=== PATIENT | male | born 1960 | race Caucasian/White ===

== ENCOUNTER 2016-06-12 20:01 | Emergency (ER) | payer BC ==
[~2016-06-12] VITALS: Ht 180.3 cm; Wt 70.5 kg
[2016-06-12 20:07] VITALS: BP 119/73; TEMP 98.4
[2016-06-12] MEDS ORDERED: CANA100T PO (20:14)
[2016-06-12] MEDS ORDERED: ROXICODONE 55 MG/TAB PO (20:15)
[2016-06-12] MEDS ORDERED: AMOXICILLIN/CLA1 TA1 PO (21:39)
[2016-06-12 21:42] VITALS: PULSE 88
== END 2016-06-12 21:48 | disposition home or self-care (01) ==
LOC: COL.ER 20:01
DX: S01.81XA Laceration without foreign body of other part of head, initial encounter (principal); S09.90XA Unspecified injury of head, initial encounter; W01.198A Fall on same level from slipping, tripping and stumbling with subsequent striking against other object, initial encounter; Y92.008 Other place in unspecified non-institutional (private) residence as the place of occurrence of the external cause; E11.9 Type 2 diabetes mellitus without complications

== ENCOUNTER → 2016-09-11 | Outpatient (CLI) | payer BC ==
[~2016-09-11] MED LIST: AMOXICILLIN/CLA1 TA1 PO; CANA100T PO; ROXICODONE 55 MG/TAB PO
== END ==
LOC: COL.RAD 14:12
DX: G44.329 Chronic post-traumatic headache, not intractable (principal)

== ENCOUNTER → 2016-12-02 | Outpatient (CLI) | payer BC | LOC: COL.RAD 11-26 11:00 | DX: M48.02 Spinal stenosis, cervical region (principal); Z98.1 Arthrodesis status ==

== ENCOUNTER → 2016-12-18 | Outpatient (CLI) | payer BC | LOC: COL.RAD 07:16 | DX: M48.02 Spinal stenosis, cervical region (principal); M47.12 Other spondylosis with myelopathy, cervical region; M50.11 Cervical disc disorder with radiculopathy, high cervical region; M46.82 Other specified inflammatory spondylopathies, cervical region; Z98.890 Other specified postprocedural states | CPT/HCPCS: A9585 ==

== ENCOUNTER → 2017-05-31 | Outpatient (CLI) | payer BC ==
[~2017-05-31] VITALS: Ht 180.3 cm; Wt 72.6 kg
[~2017-05-31] MED LIST changes: +CREON 120000 U-1 ECC PO; +JANUMXR500-50 PO; +OXYCONTIN30 MG PO
[2017-05-31 09:18] VITALS: BP 125/74; PULSE 64
[2017-05-31 10:30] VITALS: BP 147/84; PULSE 61
== END ==
LOC: COL.RAD 08:45
DX: M54.12 Radiculopathy, cervical region (principal); M54.2 Cervicalgia
CPT/HCPCS: J1100

== ENCOUNTER → 2019-09-15 | Outpatient (CLI) | payer BC ==
[~2019-09-15] MED LIST changes: +ARYMO ER30 MG PO; +CIPRO 500MG TA500 MG PO; +FLAGYL500 MG PO; +JANUMET 500 MG-1 TA1 PO; +MS CONTIN 330 MG/TAB PO
[2019-09-15 14:36] LABS: BASO % 0.2 % (0.0-2.0); EOS % 0.1 % (0-4.0); GRAN # 11.9 (1.4-6.5); GRAN % 83.3 % (42.2-75.2); HEMATOCRIT 51.9 % (42.0-52.0); HEMOGLOBIN 17.6 g/dl (13.5-18.0); LYMPH # 1.1 (1.2-3.4); LYMPH % 7.9 % (20.0-51.0); MEAN CELL VOLUME 94 fl (80.0-100.0); MEAN CORPUSCULAR HEMOGLOBIN 32 pg (27.0-31.0); MEAN CORPUSCULAR HGB CONC 34 g/dl (33.0-37.0); MEAN PLATELET VOLUME 10.6 fl (7.4-10.4); MONO # 1.2 (0.1-0.6); MONO % 8.2 % (1.7-9.3); PLATELET COUNT 195 K/mm3 (130-400); REDCELL DISTRIBUTION WIDTH-CV 12.7 % (11.5-14.5)
[2019-09-15 14:42] LABS: ALBUMIN 4.7 gm/dL (3.5-5.0); BILIRUBIN,TOTAL 1.4 mg/dL (0.0-1.0); CALCIUM 9.7 mg/dL (8.4-10.2); CREATININE, serum 0.7 (0.66-1.25); POTASSIUM 4.6 mmol/L (3.4-5.0); TOTAL PROTEIN 8.3 gm/dL (6.4-8.2)
== END ==
LOC: COL.LAB 13:55
PROVIDERS: Family Medicine
DX: K85.90 Acute pancreatitis without necrosis or infection, unspecified (principal)

== ENCOUNTER 2019-09-16 15:03 | Inpatient (IN) | payer BC ==
[2019-09-16] VITALS (120 sets, daily range): BP systolic 132; BP diastolic 86; PULSE 94; TEMP 99; O2SAT 92–100
[~2019-09-16] VITALS: Ht 180.3 cm; Wt 75.8 kg
[~2019-09-16 15:03] MED LIST changes: -ARYMO ER30 MG PO; -CIPRO 500MG TA500 MG PO; -FLAGYL500 MG PO; -JANUMET 500 MG-1 TA1 PO; -MS CONTIN 330 MG/TAB PO
[2019-09-16 15:26] LABS: BASO # 0.1 (0.0-0.2); BASO % 0.3 % (0.0-2.0); EOS % 0.1 % (0-4.0); GRAN # 14.4 (1.4-6.5); GRAN % 85.8 % (42.2-75.2); HEMATOCRIT 48.2 % (42.0-52.0); HEMOGLOBIN 16.5 g/dl (13.5-18.0); LYMPH # 0.9 (1.2-3.4); LYMPH % 5.5 % (20.0-51.0); MEAN CELL VOLUME 94 fl (80.0-100.0); MEAN CORPUSCULAR HEMOGLOBIN 32 pg (27.0-31.0); MEAN CORPUSCULAR HGB CONC 34 g/dl (33.0-37.0); MEAN PLATELET VOLUME 10.7 fl (7.4-10.4); MONO # 1.3 (0.1-0.6); MONO % 7.4 % (1.7-9.3); PLATELET COUNT 188 K/mm3 (130-400); RED BLOOD COUNT 5.13 M/mm3 (4.20-5.60); REDCELL DISTRIBUTION WIDTH-CV 12.6 % (11.5-14.5)
[2019-09-16] MEDS ORDERED: ARYMO ER30 MG PO (15:28)
[2019-09-16 15:40] LABS: ALANINE AMINOTRANSFERASE 14 U/L (4-49); ALBUMIN 4.4 gm/dL (3.5-5.0); ALKALINE PHOSPHATASE 113 U/L (50-136); ANION GAP 12 mmol/L (7-16); AST,SGOT 18 U/L (15-37); BILIRUBIN,TOTAL 1.3 mg/dL (0.0-1.0); BLOOD UREA NITROGEN 14 mg/dL (9-20); CARBON DIOXIDE 25 mmol/L (22-30); CHLORIDE 96 mmol/L (98-107); CREATININE, serum 0.62 (0.66-1.25); GLUCOSE 325 mg/dL (74-106); LIPASE 52 U/L (23-300); POTASSIUM 4.1 mmol/L (3.4-5.0); SODIUM 133 mmol/L (137-145); TOTAL PROTEIN 8.1 gm/dL (6.4-8.2)
[2019-09-16 15:50] LABS: TROPONIN-I < 0.012 ng/mL (0.000-0.035)
[2019-09-16 17:44] LABS: COLLECTION METHOD CLEAN CATCH
[2019-09-16 17:50] LABS: PH 6 (5-8); SQUAMOUS EPITHELIAL 0-2 /hpf; URINE APPEARANCE Clear; URINE BACTERIA None Seen /hpf; URINE BILIRUBIN Negative (NEGATIVE); URINE BLOOD Negative (NEGATIVE); URINE COLOR Yellow; URINE GLUCOSE 3+ (NEGATIVE); URINE KETONE 2+ (NEGATIVE); URINE LEUKOCYTE ESTERASE Negative (NEGATIVE); URINE NITRATE Negative (NEGATIVE); URINE PROTEIN(semi-quant) 1+ (NEGATIVE); URINE RBC 0-2 /hpf; URINE UROBILINOGEN Negative (NEGATIVE)
[2019-09-16 20:24] LABS: LACTATE DEHYDROGENASE 497 U/L (313-618); MAGNESIUM 1.7 mg/dL (1.6-2.3); PHOSPHOROUS 3.4 mg/dL (2.5-4.5)
[2019-09-16 20:39] LABS: ALCOHOL(ethanol),MEDICAL < 10 mg/dL
--- NOTE | 2019-09-16 21:02 | NUR ---
RECEIVED REPORT FROM KAR DAY IN ER. AWAITING ARRIVAL OF PT TO ICU 11.
--- NOTE | 2019-09-16 21:25 | NUR ---
MALACHI LÓPEZ AT BEDSIDE FOR ASSESSMENT AND TO DISCUSS POC WITH PT. NEW ORDERS RECEIVED. ALL QUESTIONS ANSWERED AT THIS TIME.
[2019-09-16] MEDS ORDERED: MS CONTIN 330 MG/TAB PO (21:39)
[2019-09-16] MEDS ORDERED: JANUMET 500 MG-1 TA1 PO (21:41)
[2019-09-16 22:51] LABS: TRICYCLIC ANTIDEPRESS URINE NEGATIVE
[2019-09-17] VITALS (1068 sets, daily range): BP systolic 143–148; BP diastolic 72–86; PULSE 53–74; TEMP 97.7–99.5; O2SAT 81–100
--- NOTE | 2019-09-17 01:39 | NUR ---
NOTIFIED MALACHI LÓPEZ OF PT STILL C/O PAIN AFTER DILUADID GIVEN. PT REQUESTS TO SWITCH TO MORPHINE BECAUSE THAT WHAT WORKS FOR HIM AT HOME THAT HE TAKES. NEW ORDERS RECEIVED. SEE MAR. WARM BLANKET PROVIDED TO LAY ON ABDOMEN TO TRY AND HELP WITH PAIN MANAGEMENT WELL.
[2019-09-17 05:39] LABS: BASO % 0.3 % (0.0-2.0); EOS % 0.2 % (0-4.0); GRAN % 80.4 % (42.2-75.2); LYMPH # 1.2 (1.2-3.4); LYMPH % 9.2 % (20.0-51.0); MEAN CELL VOLUME 96 fl (80.0-100.0); MEAN CORPUSCULAR HEMOGLOBIN 32 pg (27.0-31.0); MEAN CORPUSCULAR HGB CONC 33 g/dl (33.0-37.0); MEAN PLATELET VOLUME 11.1 fl (7.4-10.4); MONO # 1.2 (0.1-0.6); MONO % 9.3 % (1.7-9.3); PLATELET COUNT 156 K/mm3 (130-400); RED BLOOD COUNT 4.38 M/mm3 (4.20-5.60); REDCELL DISTRIBUTION WIDTH-CV 12.7 % (11.5-14.5)
[2019-09-17 05:46] LABS: ALBUMIN 3.7 gm/dL (3.5-5.0); BILIRUBIN,TOTAL 1.1 mg/dL (0.0-1.0); CALCIUM 8.7 mg/dL (8.4-10.2); CHOLESTEROL RISK RATIO 3.2; CREATININE, serum 0.56 (0.66-1.25); POTASSIUM 4.2 mmol/L (3.4-5.0); TOTAL PROTEIN 6.9 gm/dL (6.4-8.2)
--- NOTE | 2019-09-17 14:25 | NUR ---
PATIENT SLEEPING IN BED AT THIS TIME. NO DISTRESS NOTED.
--- NOTE | 2019-09-17 18:53 | NUR ---
PATIENT RESTING IN BED. WE HAVE LET ALL THE AIR OUT OF THE BED TO TRY TO MAKE IT MORE COMFORTABLE. HE SEEMS TO BE COMFORTABLE FOR NOW.
--- NOTE | 2019-09-17 19:18 | NUR ---
PATIENT COMPLAINS OF SEVERE ABD PAIN. PRN MORPHINE 2MG GIVEN IVP AT THIS TIME.
[2019-09-18] VITALS (409 sets, daily range): BP systolic 126–131; BP diastolic 52–70; PULSE 56–57; TEMP 97.8–98.3; O2SAT 76–100
[2019-09-18 05:06] LABS: BASO % 0.3 % (0.0-2.0); EOS % 0.3 % (0-4.0); GRAN # 8.8 (1.4-6.5); HEMATOCRIT 41.7 % (42.0-52.0); HEMOGLOBIN 13.9 g/dl (13.5-18.0); LYMPH # 1.3 (1.2-3.4); MEAN CELL VOLUME 97 fl (80.0-100.0); MEAN CORPUSCULAR HEMOGLOBIN 32 pg (27.0-31.0); MEAN CORPUSCULAR HGB CONC 33 g/dl (33.0-37.0); MEAN PLATELET VOLUME 11.1 fl (7.4-10.4); PLATELET COUNT 174 K/mm3 (130-400); RED BLOOD COUNT 4.31 M/mm3 (4.20-5.60); REDCELL DISTRIBUTION WIDTH-CV 12.6 % (11.5-14.5)
[2019-09-18 05:15] LABS: ALBUMIN 3.5 gm/dL (3.5-5.0); BILIRUBIN,TOTAL 1.1 mg/dL (0.0-1.0); CALCIUM 8.7 mg/dL (8.4-10.2); CREATININE, serum 0.56 (0.66-1.25); POTASSIUM 4.6 mmol/L (3.4-5.0); TOTAL PROTEIN 6.8 gm/dL (6.4-8.2)
--- NOTE | 2019-09-18 09:30 | NUR ---
PT AT BEDSIDE TO EVAL AND TREAT.
--- NOTE | 2019-09-18 10:14 | NUR ---
MITCH contacted the patient to discuss discharge plan. The patient lives in [place] with his , Parul Calvin (ph#[phone]). He reports independence with ADLs and does not have any DME. The patient's PCP is Dr. Marie Irby and he receives his medications at [facility]. He reports no difficulties obtaining his meds. The patient does not have advanced directives in EMR, and he was unsure if he had them completed. The patient plans to return back home with his upon discharge. MITCH addressed the patient's alcohol use. He reports drinking around 0-12 beers daily. He reports that after this, he is going to stop drinking for awhile. He reports that he will slow down, but is not going to stop drinking entirely. He is not interested in any treatment. MITCH contacted and updated the patient's , Parul. Parul confirmed the above information and reports that the patient does have a DPOA-HC completed and that his PCP's office should have a copy. She states that he is the patient's DPOA-HC. MITCH contacted Dr. Irby's office and requested a copy. The bookkeeper receptionist reports that they do have one on file and will fax it to [facility]. The patient is pending results for COVID-19. SW to continue to follow as needed.
--- NOTE | 2019-09-18 11:00 | NUR ---
AT BEDSIDE. SEE DISCHARGE ORDERS.
[2019-09-18] MEDS ORDERED: FLAGYL500 MG PO (11:07)
[2019-09-18] MEDS ORDERED: CIPRO 500MG TA500 MG PO (11:07)
--- NOTE | 2019-09-18 12:20 | NUR ---
PATIENT CALLING SON FOR DISCHARGE. GAVE DISCHARGE INSTRUCTIONS, SCRIPTS SENT TO PHARMACY & 'S OFFICE TO CALL PATIENT FOR F/U. DC'D LEFT FORARM IV, COVERED SITE WITH GAUZE & TAPE. DC'D TELE MONITOR. PATIENT GETTING DRESSED AND PACKING BELONGINGS.
--- NOTE | 2019-09-18 12:40 | NUR ---
PATIENT DISCHARGED WITH MASK AND PERSONAL BELONGINGS PACKED. SON MEET PATIENT AT ER DOOR. PATIENT DISCHARGED.
== END 2019-09-18 12:45 | disposition home or self-care (01) | DRG 871 ==
LOC: COL.ER 15:03 → EU 18:25 → COL.ER 18:25 → EU 18:25
PROVIDERS: Nurse Practitioner Family; Physician Assistant
DX: A41.89 Other specified sepsis (principal); K85.90 Acute pancreatitis without necrosis or infection, unspecified; K86.1 Other chronic pancreatitis; G89.29 Other chronic pain; F10.10 Alcohol abuse, uncomplicated; E11.9 Type 2 diabetes mellitus without complications; F17.200 Nicotine dependence, unspecified, uncomplicated; Z90.49 Acquired absence of other specified parts of digestive tract; Z90.89 Acquired absence of other organs; Z86.14 Personal history of Methicillin resistant Staphylococcus aureus infection; Z79.84 Long term (current) use of oral hypoglycemic drugs
CPT/HCPCS: 99223-AI; 99239; C9113; J1170; J1650; J1815; J2270; J2405; J2543; J3411; J7030

== ENCOUNTER → 2019-11-21 | Outpatient (CLI) | payer BC ==
[~2019-11-21] MED LIST changes: +ARYMO ER30 MG PO; +CIPRO 500MG TA500 MG PO; +FLAGYL500 MG PO; +JANUMET 500 MG-1 TA1 PO; +MS CONTIN 330 MG/TAB PO
[2019-11-21 08:43] LABS: BASO % 0.3 % (0.0-2.0); EOS # 0.1 (0.0-0.7); EOS % 1.5 % (0-4.0); GRAN # 3.9 (1.4-6.5); GRAN % 63.1 % (42.2-75.2); HEMATOCRIT 48.2 % (42.0-52.0); HEMOGLOBIN 16.1 g/dl (13.5-18.0); LYMPH # 1.8 (1.2-3.4); LYMPH % 28.3 % (20.0-51.0); MEAN CELL VOLUME 92 fl (80.0-100.0); MEAN CORPUSCULAR HEMOGLOBIN 31 pg (27.0-31.0); MEAN CORPUSCULAR HGB CONC 33 g/dl (33.0-37.0); MEAN PLATELET VOLUME 10.7 fl (7.4-10.4); MONO # 0.4 (0.1-0.6); MONO % 6.5 % (1.7-9.3); PLATELET COUNT 173 K/mm3 (130-400); RED BLOOD COUNT 5.22 M/mm3 (4.20-5.60); REDCELL DISTRIBUTION WIDTH-CV 14.4 % (11.5-14.5)
[2019-11-21 08:52] LABS: ALBUMIN 4.3 gm/dL (3.5-5.0); BILIRUBIN,TOTAL 1.5 mg/dL (0.0-1.0); CALCIUM 9.8 mg/dL (8.4-10.2); CREATININE, serum 0.69 (0.66-1.25); POTASSIUM 4.7 mmol/L (3.4-5.0); TOTAL PROTEIN 7.9 gm/dL (6.4-8.2)
== END ==
LOC: COL.LAB 08:12
PROVIDERS: Internal Medicine Gastroenterology
DX: K86.1 Other chronic pancreatitis (principal); K85.90 Acute pancreatitis without necrosis or infection, unspecified; K86.2 Cyst of pancreas; E11.9 Type 2 diabetes mellitus without complications

== ENCOUNTER → 2020-05-02 | Outpatient (CLI) | payer BC ==
[~2020-05-02] MED LIST changes: +MYLANTA MAXIMU355 M1 PO; +NORCO 325 MG-51 TAB PO; +PROTONIX 40MG T40 MG PO; +TRESIBA FL100 UNIT/1; +XTAMPZA ER27 MG PO; +ZOFRAN 4MG T4 MG/TAB PO
== END ==
LOC: DIA.ED
DX: E11.9 Type 2 diabetes mellitus without complications (principal); Z79.4 Long term (current) use of insulin
CPT/HCPCS: G0108

== ENCOUNTER → 2020-06-04 | Outpatient (CLI) | payer BC | LOC: COL.RAD 10:03 | DX: K76.89 Other specified diseases of liver (principal) ==

== ENCOUNTER 2020-12-19 09:58 | Inpatient (IN) | payer BC ==
[~2020-12-19] VITALS: Ht 180.3 cm; Wt 74.3 kg
[2020-12-19 10:28] LABS: BASO % 0.4 % (0.0-2.0); EOS % 0.5 % (0-4.0); GRAN # 5.9 (1.4-6.5); GRAN % 77.5 % (42.2-75.2); HEMATOCRIT 38.4 % (42.0-52.0); HEMOGLOBIN 12.7 g/dl (13.5-18.0); LYMPH # 0.9 (1.2-3.4); MEAN CELL VOLUME 88 fl (80.0-100.0); MEAN CORPUSCULAR HEMOGLOBIN 29 pg (27.0-31.0); MEAN CORPUSCULAR HGB CONC 33 g/dl (33.0-37.0); MEAN PLATELET VOLUME 11.7 fl (7.4-10.4); MONO # 0.7 (0.1-0.6); MONO % 9.1 % (1.7-9.3); PLATELET COUNT 242 K/mm3 (130-400); RED BLOOD COUNT 4.39 M/mm3 (4.20-5.60); REDCELL DISTRIBUTION WIDTH-CV 13.2 % (11.5-14.5)
[2020-12-19 10:30] LABS: COLLECTION METHOD CLEAN CATCH
[2020-12-19 10:40] LABS: AMORPHOUS CRYSTAL Present /uL; MUCOUS Present /lpf; PH 5 (5-8); URINE APPEARANCE Cloudy; URINE BACTERIA Rare /hpf; URINE BILIRUBIN Negative (NEGATIVE); URINE BLOOD 1+ (NEGATIVE); URINE COLOR Amber; URINE GLUCOSE Negative (NEGATIVE); URINE KETONE Trace (NEGATIVE); URINE LEUKOCYTE ESTERASE Negative (NEGATIVE); URINE NITRATE Negative (NEGATIVE); URINE PROTEIN(semi-quant) 2+ (NEGATIVE); URINE RBC 0-2 /hpf; URINE UROBILINOGEN >=4.0 mg/dL (NEGATIVE)
[2020-12-19 10:41] LABS: ALBUMIN 4.2 gm/dL (3.5-5.0); BILIRUBIN,TOTAL 4.9 mg/dL (0.0-1.0); C-REACTIVE PROTEIN 5.4 mg/dL (0.0-0.9); CALCIUM 10.1 mg/dL (8.4-10.2); CREATININE, serum 5.86 (0.66-1.25); POTASSIUM 4.1 mmol/L (3.4-5.0); TOTAL PROTEIN 8.2 gm/dL (6.4-8.2)
[2020-12-19] MEDS ORDERED: JANUMET 500 MG-1 TA1 PO (12:43)
[2020-12-19] MEDS ORDERED: TRESIBA FL100 UNIT/1 SQ (12:44)
[2020-12-19] MEDS ORDERED: XTAMPZA ER36 MG PO (12:44)
[2020-12-19] MEDS ORDERED: ROXICODONE 55 MG/TAB PO (12:45)
[2020-12-19 16:00] VITALS: BP 155/50; PULSE 62; TEMP 98.4
--- NOTE | 2020-12-19 19:39 | NUR ---
Patient admitted into room 348 this afternoon. Alert & oriented. Admission paperwork completed. Morphine as orders for complaints of abdominal pain. Zofran as ordered for nausea. Clear liquids provided per orders. Tele on VSS. record obtained from PCP per orders. Urine sent to lab per orders-urine dark tea in color. Consult was called to . He was in to see patient. Report to vineet Fairchild.
[2020-12-19 19:50] VITALS: BP 151/60; PULSE 72; TEMP 98.6
--- NOTE | 2020-12-19 23:05 | NUR ---
Patient assessed around 2114. Alert and oriented x 4, and able to make needs known. Denies pain and discomfort at this time. Peripheral IV to right forearm with fluids running per orders. Denies SOB and dyspnea. LS CTA in upper lobes, diminished in lower. Respirations even and unlabored. HRR. Capillary refill less than 3 seconds. Non-tenting skin turgor. BS hypoactive x4. Abdomen soft and non-tender. No edema. Voices no questions, needs, or concerns at this time. Resting in bed with call light within reach.
--- NOTE | 2020-12-19 23:49 | NUR ---
Patient reports having large, hard BM. This nurse did not see BM. Also report pain in abomen and reports he had emesis. Given PRN Morphine and Zofran as requested.
[2020-12-20] VITALS (7 sets, daily range): BP systolic 97–144; BP diastolic 41–63; PULSE 52–67; TEMP 98.1–98.4
--- NOTE | 2020-12-20 05:50 | NUR ---
Patient has been resting in bed with call light within reach. Received PRN Morphine for pain as requested. Voices no further questions, needs, or concerns at this time. Resting in bed with call light within reach.
[2020-12-20 06:32] LABS: BASO % 0.5 % (0.0-2.0); EOS # 0.1 (0.0-0.7); EOS % 1.8 % (0-4.0); GRAN # 3.5 (1.4-6.5); GRAN % 63.2 % (42.2-75.2); HEMOGLOBIN 11.3 g/dl (13.5-18.0); LYMPH # 1.2 (1.2-3.4); LYMPH % 22.4 % (20.0-51.0); MEAN CELL VOLUME 88 fl (80.0-100.0); MEAN CORPUSCULAR HEMOGLOBIN 29 pg (27.0-31.0); MEAN CORPUSCULAR HGB CONC 33 g/dl (33.0-37.0); MEAN PLATELET VOLUME 11.6 fl (7.4-10.4); MONO # 0.7 (0.1-0.6); MONO % 11.9 % (1.7-9.3); PLATELET COUNT 236 K/mm3 (130-400); RED BLOOD COUNT 3.89 M/mm3 (4.20-5.60); REDCELL DISTRIBUTION WIDTH-CV 13.3 % (11.5-14.5)
[2020-12-20 06:45] LABS: CALCIUM 8.1 mg/dL (8.4-10.2); CREATININE, serum 6.58 (0.66-1.25); HEMATOCRIT 34.3 % (42.0-52.0); POTASSIUM 4.1 mmol/L (3.4-5.0)
--- NOTE | 2020-12-20 08:20 | NUR ---
Patient in bed resting. Alert and oriented x 3. Assessment complete. States pain to back/abdomen 10/31; medications given per orders. Fluids continue infusing per orders. States he did have a small BM early this AM. Denies further needs at this time.
--- NOTE | 2020-12-20 10:27 | NUR ---
Patient states he was able to have a small BM this AM.
--- NOTE | 2020-12-20 13:40 | NUR ---
Patient denies needs at this time. States he was able to have another small BM today.
--- NOTE | 2020-12-20 13:43 | NUR ---
high worker met with patient to discuss discharge planning. Patient states he lives with his spouse and will return there upon discharge. Patient states that he is independent with his activities of daily living and denies concerns returning home upon discharge. Patient states his primary care provider is Dr Irby and he denies any difficulty paying for his medications. Patient plans to discharge home.
--- NOTE | 2020-12-20 18:29 | NUR ---
Patient doing well throughout the day. Has been independently in room. Patient denies pain at this time. Denies further needs at this time. Will report off to shift manager.
--- NOTE | 2020-12-20 20:00 | NUR ---
PT HAS MODERATE SOFT BM, THIS NURSE DID OBSERVE. PT INDEPENDENT IN ROOM. IVF CONTINUE TO RT FOREARM WITHOUT PROBLEM. HAS CHRONIC BACK PAIN.
--- NOTE | 2020-12-20 22:44 | NUR ---
MEDICATED WITH OXYCODONE 5MG PO AND MORPHINE 1MG IVP AT THIS TIME.
[2020-12-21] VITALS (7 sets, daily range): BP systolic 104–132; BP diastolic 46–70; PULSE 45–72; TEMP 97.5–98.3
--- NOTE | 2020-12-21 05:45 | NUR ---
TAKES SCHEDULED AM MEDS, IVF CONTINUE.
[2020-12-21 07:08] LABS: HEMOGLOBIN 11.2 g/dl (13.5-18.0); MEAN CELL VOLUME 89 fl (80.0-100.0); MEAN CORPUSCULAR HEMOGLOBIN 30 pg (27.0-31.0); MEAN CORPUSCULAR HGB CONC 33 g/dl (33.0-37.0); MEAN PLATELET VOLUME 11.5 fl (7.4-10.4); PLATELET COUNT 218 K/mm3 (130-400); RED BLOOD COUNT 3.79 M/mm3 (4.20-5.60); REDCELL DISTRIBUTION WIDTH-CV 13.6 % (11.5-14.5)
[2020-12-21 07:20] LABS: HEMATOCRIT 33.6 % (42.0-52.0)
[2020-12-21 07:26] LABS: CALCIUM 7.8 mg/dL (8.4-10.2); CREATININE, serum 7.05 (0.66-1.25); MAGNESIUM 1.8 mg/dL (1.6-2.3); POTASSIUM 4.1 mmol/L (3.4-5.0)
--- NOTE | 2020-12-21 18:16 | NUR ---
Patient doing well throughout the day. Up independently in room. Showered independently. Pain medications given this afternoon for back pain 10/31. Fluids continue infusing per orders. Patient denies further needs at this time. Will report off to mold shifter.
--- NOTE | 2020-12-21 22:46 | NUR ---
PT UNHAPPY WITH CURRENT PAIN MEDICATIONS ORDERED FOR HIM. HE STATED HE THOUGHT HIS MORPHINE DOSE WAS TOO LOW. HOSPITALIST BINDU NOTIFIED. NO NEW ORDERS.
[2020-12-22 03:28] VITALS: BP 126/52; PULSE 53; TEMP 98.1
--- NOTE | 2020-12-22 07:23 | NUR ---
PT STILL UNHAPPY WITH HIS STAY WHICH SEEMS TO STEM FROM THE PAIN MEDICINE ORDERED. HE WAS UPSET THAT MORE WAS NOT ORDERED. HE STATED HE IS LEAVING THE HOSPITAL TODAY REGARDLESS.
[2020-12-22 08:00] VITALS: BP 144/55; PULSE 60; TEMP 97.6
[2020-12-22 08:37] LABS: HEMOGLOBIN 11.4 g/dl (13.5-18.0); MEAN CELL VOLUME 90 fl (80.0-100.0); MEAN CORPUSCULAR HEMOGLOBIN 29 pg (27.0-31.0); MEAN CORPUSCULAR HGB CONC 32 g/dl (33.0-37.0); MEAN PLATELET VOLUME 12.4 fl (7.4-10.4); PLATELET COUNT 220 K/mm3 (130-400); RED BLOOD COUNT 3.95 M/mm3 (4.20-5.60); REDCELL DISTRIBUTION WIDTH-CV 13.6 % (11.5-14.5)
[2020-12-22 08:46] LABS: HEMATOCRIT 35.4 % (42.0-52.0)
[2020-12-22 08:53] LABS: CALCIUM 8.5 mg/dL (8.4-10.2); CREATININE, serum 6.9 (0.66-1.25); MAGNESIUM 1.8 mg/dL (1.6-2.3); POTASSIUM 4.2 mmol/L (3.4-5.0)
[2020-12-22 12:55] VITALS: BP 143/59; PULSE 43; TEMP 97.8
[2020-12-22 15:22] VITALS: BP 115/61; PULSE 53; TEMP 97.4
[2020-12-22 16:00] VITALS: BP 130/60; PULSE 83; TEMP 97.5
--- NOTE | 2020-12-22 18:50 | NUR ---
0700 PT RECEIVED SITTING IN BED. HE IS UPSET THAT HIS PAIN HAS NOT BEEN CONTROLLED ALL NIGHT. CALL PLACED TO HOSPITALIST AND THEY WERE MADE AWARE OF THE PT PAIN. 0800 NEW ORDERED RECEIVED AND PT WAS MEDICATED FOR PAIN ORDERED. WILL CONTINUE TO MONITOR PT'S PAIN. 0900 PT MEDICATIONS EXPLAINED TO HIM PRIOR TO ADMINISTRATION, PT REFUSED SOME OF HIS MEDICATIONS AND APPEARS AGITATED. HOSPITALIST MADE AWARE THAT THE PT IS STATING THAT HE WANTS TO GO HOME. 1200 V/S STABLE AND PT ATE HIS LUNCH. BLOOD GLUCOSE MONITORED ORDERED. 1300 SPOUSE AT THE BEDSIDE AND UPDATED ON THE PT'S CARE WITH HIS CONSENT. PT PAIN IS BETTER CONTROLLED. WILL CONTINUE TO MONITOR.
[2020-12-22 20:20] VITALS: BP 131/60; PULSE 53; TEMP 98.1
--- NOTE | 2020-12-23 00:32 | NUR ---
PT ANNOUNCED HE WAS LEAVING AMA. HE THEN STATED HE WASN'T LEAVING AMA UNTIL 0800 AND WAS REFUSING ALL TREATMENT BUT WOULD EXCEPT MORPHINE FOR PAIN AND LAB WORK IN A.M.
--- NOTE | 2020-12-23 06:23 | NUR ---
PT HAS REFUSED CARE EXCEPT FOR MORPHINE. PT STATED HE WOULD ALLOW LAB TO DRAW BLOOD THIS MORNING BUT PLANNED ON LEAVING AMA AT AROUND 0800 THIS MORNING. PT HAS BEEN VERY UNHAPPY WITH HIS MEDICATIONS, ESPECIALLY PAIN MEDICATION THOUGH HE DID REFUSE HIS OXYCONTIN. PT WANTED SLEEP MEDICATION BUT REFUSED WHAT WAS ORDERED.
[2020-12-23 07:36] LABS: HEMOGLOBIN 10.5 g/dl (13.5-18.0); MEAN CELL VOLUME 90 fl (80.0-100.0); MEAN CORPUSCULAR HEMOGLOBIN 29 pg (27.0-31.0); MEAN CORPUSCULAR HGB CONC 32 g/dl (33.0-37.0); MEAN PLATELET VOLUME 11.8 fl (7.4-10.4); PLATELET COUNT 217 K/mm3 (130-400); RED BLOOD COUNT 3.64 M/mm3 (4.20-5.60); REDCELL DISTRIBUTION WIDTH-CV 13.8 % (11.5-14.5)
[2020-12-23 07:37] LABS: HEMATOCRIT 32.8 % (42.0-52.0)
[2020-12-23 07:47] VITALS: BP 166/73; PULSE 54; TEMP 98.6
[2020-12-23 07:48] LABS: CALCIUM 8.6 mg/dL (8.4-10.2); CREATININE, serum 5.52 (0.66-1.25); MAGNESIUM 1.7 mg/dL (1.6-2.3); POTASSIUM 4.4 mmol/L (3.4-5.0)
[2020-12-23] MEDS ORDERED: ZESTRIL2.5 MG PO (08:08)
[2020-12-23] MEDS ORDERED: MIRALAX119G PO (08:09)
[2020-12-23] MEDS ORDERED: SENOKOT S 50 MG1 TAB PO (08:09)
--- NOTE | 2020-12-23 08:09 | NUR ---
Contacted Cherie VAN, patient called out stating he would like pain medication for back pain 11/30, oxycontin offered. Patient states that he does not want to take anything for pain unless it is morphine. Patient also refused all AM medications at this time, stating that if he is not getting morphine he does not want anything else. Would like to leave today.
--- NOTE | 2020-12-23 09:11 | NUR ---
Discharge education provided to patient. Educated on when to call provider and follow up appointments. Patient educated on all new medications and follow up labs/renal US. All questions answered. INT to right forarm discontinued; catheter tip intact. Denies further needs at this time. Patient will call when his ride is here.
--- NOTE | 2020-12-23 09:20 | NUR ---
Patient out with surgical staff.
== END 2020-12-23 09:20 | disposition home or self-care (01) | DRG 683 ==
LOC: COL.ER 09:58 → SURG 12:53
PROVIDERS: Family Medicine; Physician Assistant; ADMIT Student in an Organized Health Care Education/Training Program
DX: N17.9 Acute kidney failure, unspecified (principal); K86.1 Other chronic pancreatitis; E87.2 Acidosis; K59.00 Constipation, unspecified; R11.2 Nausea with vomiting, unspecified; E11.9 Type 2 diabetes mellitus without complications; F17.210 Nicotine dependence, cigarettes, uncomplicated; F10.10 Alcohol abuse, uncomplicated; Z90.89 Acquired absence of other organs; Z90.49 Acquired absence of other specified parts of digestive tract
CPT/HCPCS: 99222-AI; 99232-AI; 99233-AI; 99239; J1170; J1644; J1815; J2270; J2405; J7030; J7120

== ENCOUNTER → 2021-03-24 | Outpatient (CLI) | payer BC ==
[~2021-03-24] MED LIST changes: +MIRALAX119G PO; +SENOKOT S 50 MG1 TAB PO; +TRESIBA FL100 UNIT/1 SQ; +XTAMPZA ER36 MG PO; +ZESTRIL2.5 MG PO
== END ==
LOC: COL.CARD 03-07 13:00
DX: R56.9 Unspecified convulsions (principal)